=== PATIENT | male | born 1950 | race Caucasian/White ===

== ENCOUNTER 2021-02-21 16:54 | Emergency (ER) | payer OTHER ==
[~2021-02-21] VITALS: Ht 167.6 cm; Wt 68.0 kg
[2021-02-21 17:00] VITALS: BP 125/66
[2021-02-21 18:09] LABS: APPEARANCE,URINE CLEAR (CLEAR); BILIRUBIN,URINE 1+ (NEGATIVE); BLOOD, URINE 3+ (NEGATIVE); COLOR,URINE YELLOW (YELLOW); LEUKOCYTE ESTERASE ,URINE 3+ (NEGATIVE); NITRITE, URINE NEGATIVE (NEGATIVE); UGLUCOSE NEGATIVE (NEGATIVE)
[2021-02-21 18:13] LABS: RBC,URINE 50-80 /HPF (0-5); WBC,URINE 80-100 /HPF (0-5)
[2021-02-21] MEDS ORDERED: CEPH-588 PO (19:09)
[2021-02-21 19:23] VITALS: BP 139/64
== END 2021-02-21 19:23 | disposition home or self-care (01) ==
LOC: MED 16:54
DX: N30.91 Cystitis, unspecified with hematuria (principal); N40.0 Benign prostatic hyperplasia without lower urinary tract symptoms
CPT/HCPCS: 81001; 87086; 87186; 99284

== ENCOUNTER 2022-11-21 16:20 | Emergency (ER) | payer OTHER ==
[~2022-11-21] VITALS: Ht 167.6 cm; Wt 58.1 kg
[~2022-11-21 16:20] MED LIST: CEPH-588 PO
--- NOTE | 2022-11-21 16:30 | NUR ---
72/M WALKED IN C/O PELVIC PAIN, LOW BACK PAIN AND DYSURIA X 1 MONTH. DENIES HEMATURIA. AAO4, AFEBRILE, NO ACUTE DISTRESS NOTED. NKA PMH: HDL, BPH
[2022-11-21 16:46] VITALS: BP 141/66
--- NOTE | 2022-11-21 16:51 | NUR ---
PT AMBULATED TO ER BED 9
[2022-11-21 18:00] LABS: APPEARANCE,URINE SLIGHTLY CLOUDY (CLEAR); COLOR,URINE YELLOW (YELLOW)
[2022-11-21 18:01] LABS: UGLUCOSE NEGATIVE (NEGATIVE)
[2022-11-21 18:02] LABS: BILIRUBIN,URINE NEGATIVE (NEGATIVE); BLOOD, URINE TRACE (NEGATIVE)
[2022-11-21 18:03] LABS: LEUKOCYTE ESTERASE ,URINE SMALL (NEGATIVE); NITRITE, URINE NEGATIVE (NEGATIVE)
[2022-11-21] MEDS ORDERED: KETOROLAC 60 MG/2 ML VIAL IM ONE (18:25)
[2022-11-21 18:43] LABS: RBC,URINE 0-5 /HPF (0-5); WBC,URINE 60-80 /HPF (0-5)
[2022-11-21 18:44] LABS: TRICHOMONAS,URINE None Seen /HPF (None Seen); YEAST,URINE None Seen /HPF (None Seen)
[2022-11-21] MEDS ORDERED: CIPR500T4 PO ×2 (19:03→19:54)
[2022-11-21] MEDS ORDERED: IBUP-2213 PO ×2 (19:03→19:54)
--- NOTE | 2022-11-21 19:16 | NUR ---
Patient discharged with v/s stable. Written and verbal after care instructions ABOUT PYELONEPHRITIS AND ABD PAIN given and explained. Patient alert, oriented and verbalized understanding of instructions. Ambulatory with steady gait. All questions addressed prior to discharge. ID band removed. Patient advised to follow up with PMD. Rx of MOTRIN, CIPRO given. Patient educated on indication of medication including possible reaction and side effects. Opportunity to ask questions provided and answered.
== END 2022-11-21 19:15 | disposition home or self-care (01) ==
LOC: MED 16:20
DX: N12 Tubulo-interstitial nephritis, not specified as acute or chronic (principal); M54.50 Low back pain, unspecified; Z79.899 Other long term (current) drug therapy; Z90.49 Acquired absence of other specified parts of digestive tract
CPT/HCPCS: 81001; 96372; 99283; J1885

== ENCOUNTER 2022-12-03 11:08 | Emergency (ER) | payer OTHER ==
[~2022-12-03] VITALS: Ht 167.6 cm; Wt 62.1 kg
[~2022-12-03 11:08] MED LIST changes: +CIPR500T4 PO; +IBUP-2213 PO
[2022-12-03 11:28] VITALS: BP 119/72
--- NOTE | 2022-12-03 11:35 | NUR ---
PT TO LOBBY ACCOMPANIED BY CAREGIVER
--- NOTE | 2022-12-03 11:36 | NUR ---
URINE CUP PROVIDED FOR CLEAN CATCH SPECIMEN
--- NOTE | 2022-12-03 12:54 | NUR ---
PT AMBULATED TO ER BED 3
[2022-12-03] MEDS ORDERED: MORPHINE SULFATE 4 MG/ML SYR IVP ONE (13:05)
[2022-12-03] MEDS ORDERED: NACL 0.9% 500 ML IV ONE (13:05)
[2022-12-03] MEDS ORDERED: ONDANSETRON 4 MG/2 ML VIAL IVP ONE (13:05)
[2022-12-03 14:07] VITALS: BP 122/74
[2022-12-03 14:16] LABS: BASOPHILS % (AUTO) 0.2 % (0.0-2.0); EOSINOPHILS # (AUTO) 0.1 K/uL (0-0.4); EOSINOPHILS % (AUTO) 1.2 % (0.0-4.0); HEMATOCRIT 42.6 % (36-52); HEMOGLOBIN 14.5 g/dL (12.0-18.0); LYMPHOCYTES # (AUTO) 1.2 K/uL (2.0-11.5); LYMPHOCYTES % (AUTO) 14.6 % (20.5-51.1); MEAN CORPUSCULAR HEMOGLOBIN 31 pg (27-31); MEAN CORPUSCULAR HGB CONC 34 g/dL (33-37); MEAN CORPUSCULAR VOLUME 92.4 fL (80-94); MONOCYTES # (AUTO) 0.8 K/uL (0.8-1.0); MONOCYTES % (AUTO) 9.7 % (1.7-9.3); NEUTROPHILS # (AUTO) 6.1 K/uL (1.8-7.7); NEUTROPHILS % (AUTO) 74.3 % (42.2-75.2); PLATELET COUNT (AUTO) 362 K/uL (140-450); RED BLOOD CELL COUNT(AUTO) 4.62 MIL/uL (4.20-6.10); RED CELL DISTRIBUTION WIDTH 12.5 % (11.6-13.7); WHITE BLOOD COUNT (AUTO) 8.3 K/uL (4.8-10.8)
--- NOTE | 2022-12-03 14:16 | NUR ---
sleeping, easily arousable, pain relieved with iv meds. voids per urinal. wears diaper due to dribbling
[2022-12-03 14:23] LABS: ALBUMIN 3.9 g/dL (3.4-5.0); ANION GAP 13.8 (8-16); ASPARTATE AMINOTRANSFERASE 30 U/L (15-37); CHLORIDE 102 mmol/L (98-107); CREATININE 1.2 mg/dL (0.6-1.3); GLUCOSE 94 mg/dL (74-106); POTASSIUM 3.8 mmol/L (3.5-5.1); SODIUM SERUM 138 mmol/L (136-145); TOTAL BILIRUBIN 0.6 mg/dL (0.0-1.0); UREA NITROGEN, BLOOD 13 mg/dL (7-18)
[2022-12-03 14:37] LABS: APPEARANCE,URINE CLEAR (CLEAR); BILIRUBIN,URINE NEGATIVE (NEGATIVE); BLOOD, URINE NEGATIVE (NEGATIVE); COLOR,URINE YELLOW (YELLOW); LEUKOCYTE ESTERASE ,URINE NEGATIVE (NEGATIVE); NITRITE, URINE POSITIVE (NEGATIVE); UGLUCOSE NEGATIVE (NEGATIVE)
[2022-12-03 15:11] LABS: RBC,URINE 0-5 /HPF (0-5); WBC,URINE 0-5 /HPF (0-5)
[2022-12-03] MEDS ORDERED: PYR100 PO (16:29)
[2022-12-03] MEDS ORDERED: ACET-3114 PO (16:29)
--- NOTE | 2022-12-03 16:34 | NUR ---
no further pain, voiding per urinal. waiting for uber ride arranged by friends
== END 2022-12-03 16:30 | disposition home or self-care (01) ==
LOC: MED 11:08
DX: R10.32 Left lower quadrant pain (principal); R30.0 Dysuria; R35.0 Frequency of micturition; N40.0 Benign prostatic hyperplasia without lower urinary tract symptoms; N13.4 Hydroureter; N31.9 Neuromuscular dysfunction of bladder, unspecified; Z79.2 Long term (current) use of antibiotics; Z79.1 Long term (current) use of non-steroidal anti-inflammatories (NSAID)
CPT/HCPCS: 36415; 74176; 80053; 81001; 81003; 85025; 87086; 96361; 96374; 96375; 99285; J2270; J2405; J7030

== ENCOUNTER 2022-12-28 18:03 | Inpatient (IN) | payer OTHER ==
[~2022-12-28] VITALS: Ht 165.1 cm; Wt 57.6 kg
[~2022-12-28 18:03] MED LIST changes: +ACET-3114 PO; +PYR100 PO
[2022-12-28 18:12] VITALS: BP 141/83
[2022-12-28] MEDS ORDERED: ONDANSETRON 4 MG/2 ML VIAL IVP ONE (18:50)
[2022-12-28] MEDS ORDERED: MORPHINE SULFATE 4 MG/ML SYR IVP ONE (18:50)
[2022-12-28 19:44] LABS: BASOPHILS % (AUTO) 0.2 % (0.0-2.0); EOSINOPHILS # (AUTO) 0.1 K/uL (0-0.4); EOSINOPHILS % (AUTO) 0.8 % (0.0-4.0); HEMATOCRIT 41.6 % (36-52); LYMPHOCYTES # (AUTO) 0.8 K/uL (2.0-11.5); LYMPHOCYTES % (AUTO) 10.3 % (20.5-51.1); MEAN CORPUSCULAR HEMOGLOBIN 30 pg (27-31); MEAN CORPUSCULAR HGB CONC 34 g/dL (33-37); MEAN CORPUSCULAR VOLUME 90.5 fL (80-94); MONOCYTES # (AUTO) 0.6 K/uL (0.8-1.0); NEUTROPHILS # (AUTO) 6.5 K/uL (1.8-7.7); NEUTROPHILS % (AUTO) 80.7 % (42.2-75.2); PLATELET COUNT (AUTO) 331 K/uL (140-450); RED BLOOD CELL COUNT(AUTO) 4.59 MIL/uL (4.20-6.10); WHITE BLOOD COUNT (AUTO) 8.1 K/uL (4.8-10.8)
[2022-12-28 20:04] LABS: APPEARANCE,URINE CLEAR (CLEAR); BILIRUBIN,URINE NEGATIVE (NEGATIVE); BLOOD, URINE NEGATIVE (NEGATIVE); COLOR,URINE YELLOW (YELLOW); LEUKOCYTE ESTERASE ,URINE NEGATIVE (NEGATIVE); NITRITE, URINE NEGATIVE (NEGATIVE); UGLUCOSE NEGATIVE (NEGATIVE)
[2022-12-28 20:05] LABS: ALBUMIN 3.4 g/dL (3.4-5.0); ANION GAP 11.8 (8-16); ASPARTATE AMINOTRANSFERASE 19 U/L (15-37); CHLORIDE 105 mmol/L (98-107); CREATININE 1.1 mg/dL (0.6-1.3); GLUCOSE 96 mg/dL (74-106); LIPASE 61 U/L (73-393); POTASSIUM 3.8 mmol/L (3.5-5.1); SODIUM SERUM 138 mmol/L (136-145); TOTAL BILIRUBIN 0.7 mg/dL (0.0-1.0); UREA NITROGEN, BLOOD 12 mg/dL (7-18)
--- NOTE | 2022-12-28 20:11 | NUR ---
72 YR OLD MALE BIB SPOUSE C/O ABD PAIN [id number] RADIATES TO FLANK AREA . 1010 PAIN . PT IS A&OX4 TAGALOG SPEAKING ONLY. +NAUSEA DYURIA AND GEN WEAKNESS. ON BEDSIDE MONITOR . HOB ELEVATED. 20G L AC BED AT LOWEST LEVEL SIDE RAILS UP X2. NKDA ENLARGED PROSTATE
[2022-12-28] MEDS ORDERED: HEPARIN PER PHARMACY MC PRN ×2 (22:40→22:45)
[2022-12-28] MEDS ORDERED: hePARIN / DEXT 5% PREMIX 250 ML IV SCH ×2 (22:40→22:45)
--- NOTE | 2022-12-28 23:05 | NUR ---
PT ADMITTED TO ICU. PT AND AWARE. ON BEDSIDE ASSISTANT PROFESSOR OF ENGLISH. PT IS A&OX4 RESP EVEN AND UNLABORED.
--- NOTE | 2022-12-28 23:06 | NUR ---
COVID SWAB COLLECTED AND SENT TO LAB
--- NOTE | 2022-12-28 23:49 | NUR ---
REPORT GIVEN TO ICU
[2022-12-29] VITALS (17 sets, daily range): BP systolic 124–154; BP diastolic 60–91
--- NOTE | 2022-12-29 00:07 | NUR ---
Patient will be admitted to care of DR GALARZA. Admited to ICU. Will go to room ICU 8. Belongings list completed. Report to SOURAV MARTINEZ.
--- NOTE | 2022-12-29 00:10 | NUR ---
RECEIVED PT FROM ER. REPORT GIVEN BY LEXUS PISANO. PT ALERT AND ORIENTED. ABLE TO FOLLOW SIMPLE COMMANDS AND ABLE TO PROVIDE INFORMATION REGARDING HIS HEALTH CONDITION AND HISTORY. ON ROOM AIR WITH SATURATION OF 96%. LUNG SOUNDS CLEAR TO AUSCULTATION AT ALL LOBES. NO SOB. EYES REACTIVE TO LIGHT AND ACCOMMODATION. NORMAL SINUS RHYTHM ON THE MONITOR. SKIN INTACT. CONTINENT WITH CLEAR YELLOW URINE COLOR. GENERALIZED WEAKNESS ON UPPER AND LOWER EXTREMITIES BILATERALLY. REPOSITION AND PLACED COMFORTABLY IN BED WITH HEAD OF BED ELEVATED AT 30 DEGREE. BED LOCK AND PLACED AT LOWEST POSITION. CALL LIGHT AND BELONGINGS WITHIN REACH. MAKE ALL NEEDS KNOWN. NO S/S OF DISTRESS. NO S/S OF PAIN. IS AT BEDSIDE DURING TRANSFER TO ICU. WILL CONTINUE TO MONITOR FOR CHANGE OF CONDITION
--- NOTE | 2022-12-29 00:17 | NUR ---
The patient's care was reviewed and supervised by Sharmila Dillard RN.
[2022-12-29] MEDS: hePARIN / DEXT 5% PREMIX 250 ML IV SCH ×3 (01:04→23:19)
--- NOTE | 2022-12-29 07:26 | NUR ---
REPORT GIVEN TO RAFFY LOZADA RN FOR CONTINUITY OF CARE.
[2022-12-29 08:03] LABS: ANION GAP 12.5 (8-16); CARBON DIOXIDE 26.2 mmol/L (21-32); CHLORIDE 104 mmol/L (98-107); CREATININE 0.9 mg/dL (0.6-1.3); GLUCOSE 88 mg/dL (74-106); POTASSIUM 3.7 mmol/L (3.5-5.1); SODIUM SERUM 139 mmol/L (136-145); UREA NITROGEN, BLOOD 13 mg/dL (7-18)
[2022-12-29 08:15] LABS: BASOPHILS % (AUTO) 0.1 % (0.0-2.0); EOSINOPHILS # (AUTO) 0.1 K/uL (0-0.4); EOSINOPHILS % (AUTO) 1.3 % (0.0-4.0); HEMATOCRIT 38.7 % (36-52); HEMOGLOBIN 13.2 g/dL (12.0-18.0); LYMPHOCYTES # (AUTO) 0.8 K/uL (2.0-11.5); LYMPHOCYTES % (AUTO) 11.3 % (20.5-51.1); MEAN CORPUSCULAR HEMOGLOBIN 31 pg (27-31); MEAN CORPUSCULAR HGB CONC 34 g/dL (33-37); MEAN CORPUSCULAR VOLUME 89.9 fL (80-94); MONOCYTES # (AUTO) 0.5 K/uL (0.8-1.0); MONOCYTES % (AUTO) 7.4 % (1.7-9.3); NEUTROPHILS # (AUTO) 5.9 K/uL (1.8-7.7); NEUTROPHILS % (AUTO) 79.9 % (42.2-75.2); PLATELET COUNT (AUTO) 325 K/uL (140-450); WHITE BLOOD COUNT (AUTO) 7.4 K/uL (4.8-10.8)
[2022-12-29 08:38] LABS: PROTHROMBIN TIME 12.1 secs (10.8-13.4)
--- NOTE | 2022-12-29 08:50 | NUR ---
PTT RESULT @98.2. PER HEPARIN PROTOCOL, HOLD FOR ONE HOUR AND TITRATE DOWN 3 UNITS/KG/HR. WILL RESUME HEPARIN DRIP AT 0950 @15UNITS/KG/HR. PT VSS. NAD NOTED. WILL CONT TO MONITOR.
--- NOTE | 2022-12-29 09:13 | NUR ---
PATIENT HAS BEEN SCREENED AND CATEGORIZED MODERATE NUTRITION RISK. PATIENT WILL BE SEEN WITHIN 3-5 DAYS OF ADMISSION. REVIEWED BY MELISSA RAHMAN RD
[2022-12-29] MEDS ORDERED: HYDROmorphone 2 MG TAB PO PRN (10:45)
[2022-12-29] MEDS: MORPHINE SULFATE 2 MG/ML SYR IVP PRN (11:25)
[2022-12-29] MEDS ORDERED: MAG SULF 2000 MG/WATER PREMIX 50 ML IV PRN (12:10)
[2022-12-29] MEDS ORDERED: ONDANSETRON 4 MG/2 ML VIAL IVP PRN (12:10)
[2022-12-29] MEDS ORDERED: POTASSIUM CHLORIDE 10 MEQ TABER PO PRN (12:10)
[2022-12-29] MEDS ORDERED: ACETAMINOPHEN 325 MG TAB PO PRN (12:10)
--- NOTE | 2022-12-29 12:22 | NUR ---
DC PLANNING ASSESSMENT COMPLETE PLEASE REFER TO ASSESSMENT FOR ADDITIONAL DETAILS PT REPORTS BEING TOLD ABOUT POSSIBLE CANCER DX AND REPORTS BEING WORRIED. PT STRUGGLED TO IDENTIFY DC PLAN, HOWEVER CURRENT DC PLAN TENTATIVE ON PHYSICIAN RECOMMENDATIONS. Addendum: 12/29/22 at 1223 by John Moreau SS Amended: Links added.
[2022-12-29] MEDS: NACL 0.9% 1,000 ML IV SCH (12:32)
[2022-12-29 13:00] LABS: PROTHROMBIN TIME 11.8 secs (10.8-13.4)
[2022-12-29 13:09] LABS: AMYLASE 53 U/L (25-115); CHOL/HDL RATIO 3.7 (1-4.5); FREE T4 (FREE THYROXINE) 1.27 ng/dL (0.76-1.46); HDL CHOLESTEROL 41 mg/dL (40-60); LDL (CALC) 92 mg/dL (60-100); LIPASE 50 U/L (73-393); TRIGLYCERIDES 96 mg/dL (30-150)
--- NOTE | 2022-12-29 14:39 | NUR ---
DC PLANNING A 72 Y.O. [place] PATIENT PRESENTED TO ED FOR EVALUATION OF 1 MONTH HX OF INTERMITTENT,SQUEEZING/CRAMPING ABDOMINAL PAIN ASSOCIATED WITH EPIGASTRIC/ABDOMINAL PAIN,DECREASED APPETITE,DYSURIA AND GENERALIZED WEAKNESS.PATIENT ALSO COMPLAINING OF DIFFICULTY WALKING SECONDARY TO ABDOMINAL PAIN AND DECREASED URINARY OUTPUT. HX OF BPI,COPD,ALERT AND ORIENTED.ON ROOM AIR.ON HEPARIN DRIP.CM TO FOLLOW. Addendum: 12/29/22 at 1523 by MIRNA MCCOY CM DC PLANNING-LATE ENTRY ABDOMEN PELVIS CT CONCERNING FOR CAREN METASTATIC DISEASE VS HYPOPROLIFERATIVE DISEASE, MILD ASCITES CONCERNING FOR MALIGNANT ASCITES.PATIENT HAS NO PCP.DC PLAN - BACK HOME WITH POSSIBLY WITH HOME HEALTH FOR PT.CM TO FOLLOW. Addendum: 12/30/22 at 1240 by MIRNA MCCOY CM DC PLANNING TRANSFERRED TO TELEMETRY UNIT 12/29/22.HEPARIN DRIP DISCONTINUED AND WAS STARTED ON ELIQUIS. HEMATOLOGY-ONCOLOGY ON BOARD FOR POSSIBLE STAGE 1V COLON CA.GI CONSULT REQUESTED FOR POSSIBLE COLONOSCOPY.NO ADDITIONAL CARDIAC WORKUP PER CARDIO.DC PLAN -TO [facility] FOR SNF PLACEMENT WHEN STABLE FOR DISCHARGE. AGREED WITH DC PLAN.CM TO FOLLOW. Addendum: 12/31/22 at 1638 by OMEGA MORFIN CM RECEIVED ORDER FOR PATIENT TO GO TO SNF FOR PT. FAXED ALL PAPERWORK TO [facility]. SPOKE WITH LUCY PATIENT WAS ACCEPTED AND WILL BE GOING TO ROOM 33A UNDER DR WANG. TRANSPORTATION ARRANGED WITH THE HOUSE SUP WITH A UBER TO TRANSPORT PATIENT TO [facility] WITH IN THE HOUR. NURSE IRKKI AND AWARE OF THE ABOVE INFORMATION.
--- NOTE | 2022-12-29 15:20 | NUR ---
CARE ENDORSED TO CLAUDIA MARTINEZ FOR TELEMETRY UNIT ROOM 105B. VSS. NAD NOTED. HEPARIN DRIP RUNNING AT 800UNITS/HR. NO SIGNS OF BLEEDING. AAOX4. PT CONTINENT, USES URINAL. NO COMPLAINTS OF PAIN AT THIS TIME. ALL QUESTIONS ANSWERED. AT BEDSIDE. END OF CARE.
--- NOTE | 2022-12-29 15:20 | NUR ---
RECEIVED FROM ICU VIA WHEELCHAIR. ACCOMPANIED BY PT -. A & O X4. NO SOB, NOTED. NO C/O PAIN. IN STABLE CONDITION. SKIN WARM, DRY, AND INTACT. KEEP COMFORTABLE ON BED. FALL PRECAUTION APPLIED. CALL LIGHT WITHIN REACH.
[2022-12-29 16:01] LABS: THYROID STIMULATING HORMONE 2.13 uIU/mL (0.34-3.74)
[2022-12-29] MEDS: HYDROcodone/APAP 7.5/325 MG 1 TAB PO PRN (17:21)
--- NOTE | 2022-12-29 18:26 | NUR ---
COLLECTED URINE SPECIMEN AND SEND TO LAB FOR URINE CULTURE.
--- NOTE | 2022-12-29 19:10 | NUR ---
REPORT GIVEN TO GURMEET BARRIENTOS. IN STABLE CONDITION.
--- NOTE | 2022-12-29 19:15 | NUR ---
RECEIVED PT IN BED ASLEEP EASILY AROUSABLE BY VERBAL STIMULI. DENIES PAIN AT THIS TIME. NO ACUTE RESPIRATORY DISTRESS NOTED. SKIN WARM AND DRY TO TOUCH. HEPARIN DRIP INFUSING WELL ORDERED. SAFETY PRECAUTIONS IN PLACE, CALL LIGHT IN REACH.
[2022-12-29 19:20] LABS: BARBITURATE, URINE NEGATIVE ng/ml (NEG <=200); BENZODIAZEPINE, URINE NEGATIVE ng/mL (NEG <=200); CANNABINOID, URINE NEGATIVE ng/mL (NEG <=50); COCAINE, URINE NEGATIVE ng/mL (NEG <=300); OPIATE, URINE POSITIVE ng/mL (NEG <=2000); PHENCYCLIDINE SCREEN,URINE NEGATIVE ng/mL (NEG <=25)
[2022-12-29] MEDS: DOCUSATE SODIUM 100 MG GELCAP PO SCH (20:06)
--- NOTE | 2022-12-29 23:04 | NUR ---
PTT-58.8 PER LAB, NO CHANGE IN HEPARIN DRIP PER PROTOCOL.
--- NOTE | 2022-12-30 | NUR ---
VITAL SIGNS TAKEN AND DOCUMENTED, WITHIN NORMAL LIMITS. DENIES PAIN. CALL LIGHT REMAINS WITHIN REACH.
[2022-12-30 00:06] VITALS: BP 148/69
--- NOTE | 2022-12-30 02:18 | NUR ---
ROUNDING DONE. PATIENT IS ASLEEP. BREATHING EVEN AND UNLABORED. CALL LIGHT WITHIN REACH.
[2022-12-30] MEDS: MORPHINE SULFATE 2 MG/ML SYR IVP PRN (02:47)
[2022-12-30] MEDS: hePARIN / DEXT 5% PREMIX 250 ML IV SCH (02:51)
[2022-12-30 04:00] VITALS: BP 137/57
[2022-12-30] MEDS: HYDROcodone/APAP 7.5/325 MG 1 TAB PO PRN (06:11)
--- NOTE | 2022-12-30 06:34 | NUR ---
PT IS ASLEEP. ALL NEEDS ATTENDED TO. NO S/SX OF PAIN NOR DISCOMFORT. SAFETY PRECAUTIONS IN PLACE, CALL LIGHT REMAINS WITHIN REACH.
[2022-12-30 07:05] LABS: MAGNESIUM 1.9 mg/dL (1.8-2.4); PHOSPHORUS 2.9 mg/dL (2.5-4.9)
[2022-12-30 07:08] LABS: BASOPHILS % (AUTO) 0.2 % (0.0-2.0); EOSINOPHILS # (AUTO) 0.1 K/uL (0-0.4); EOSINOPHILS % (AUTO) 1.7 % (0.0-4.0); HEMATOCRIT 37.7 % (36-52); LYMPHOCYTES # (AUTO) 0.9 K/uL (2.0-11.5); LYMPHOCYTES % (AUTO) 13.6 % (20.5-51.1); MEAN CORPUSCULAR HEMOGLOBIN 31 pg (27-31); MEAN CORPUSCULAR HGB CONC 34 g/dL (33-37); MEAN CORPUSCULAR VOLUME 89.7 fL (80-94); MONOCYTES # (AUTO) 0.7 K/uL (0.8-1.0); MONOCYTES % (AUTO) 10.4 % (1.7-9.3); NEUTROPHILS # (AUTO) 4.9 K/uL (1.8-7.7); NEUTROPHILS % (AUTO) 74.1 % (42.2-75.2); PLATELET COUNT (AUTO) 325 K/uL (140-450); RED BLOOD CELL COUNT(AUTO) 4.21 MIL/uL (4.20-6.10); RED CELL DISTRIBUTION WIDTH 12.9 % (11.6-13.7); WHITE BLOOD COUNT (AUTO) 6.6 K/uL (4.8-10.8)
--- NOTE | 2022-12-30 07:10 | NUR ---
RECEIVED PATIENT FROM PM SHIFT NURSE FOR CONTINUATION OF CARE. ED SEEN ASLEEP. NORAML RISE AND FALL OF CHEST
[2022-12-30 07:13] LABS: ANION GAP 12.7 (8-16); CARBON DIOXIDE 26.1 mmol/L (21-32); CHLORIDE 104 mmol/L (98-107); GLUCOSE 85 mg/dL (74-106); POTASSIUM 3.8 mmol/L (3.5-5.1); SODIUM SERUM 139 mmol/L (136-145); UREA NITROGEN, BLOOD 11 mg/dL (7-18)
--- NOTE | 2022-12-30 07:40 | NUR ---
PATIENT SEEN BY MD WITH RN. PATIENT STATES HE WANTS TO HAVE MORE TESTS DONE TO PINPOINT THE SPECIFIC MEDICAL PROBLEM IN ORDER FOR PROPER TREATMENT AND HEALING. PATIENT DENIES COMFORT CARE IN FACILITY DUE TO HIM AND HIS BEING OF OLD AGE WITH NO AVAILABLE ASSISTANCE. PATIENT ALSO REFUSES TO GO TO A CARE FACILITY. PATIENT WANTS TO BE TREATED IN THE HOSPITAL.
[2022-12-30] MEDS ORDERED: MORPHINE SULFATE 2 MG/ML SYR IVP PRN (07:45)
--- NOTE | 2022-12-30 07:54 | NUR ---
NEW ORDERS GIVEN BY MD. PATIENT CARE AND MONITORING CONTINUED.
--- NOTE | 2022-12-30 07:55 | NUR ---
PATIENT COMPLAINS OF PAIN. SCORE 9/10. PAIN MEDS GIVEN. REASSESSMENT IN 0855
[2022-12-30 08:00] VITALS: BP 147/61
--- NOTE | 2022-12-30 08:00 | NUR ---
PATIENT DECIDES NOT TO TAKE MORPHINE AND WANTS SOMETHING ORAL. MD NOTIFIED. MD GAVE ORDERS FOR DILAUDED PO FOR SEVERE PAIN.
[2022-12-30] MEDS: PANTOPRAZOLE 40 MG INJ VIAL IVP SCH (09:07)
[2022-12-30] MEDS: NACL 0.9% 1,000 ML IV SCH (09:07)
[2022-12-30] MEDS: DOCUSATE SODIUM 100 MG GELCAP PO SCH ×2 (09:07→20:10)
[2022-12-30 12:00] VITALS: BP 110/44
[2022-12-30] MEDS ORDERED: MORPHINE SULFATE 4 MG/ML SYR IVP PRN (12:40)
[2022-12-30 16:00] VITALS: BP 142/76
--- NOTE | 2022-12-30 17:48 | NUR ---
P.T. NOTES P.T. EVAL COMPLETED; REFER TO EVAL FOR DETAILS.
--- NOTE | 2022-12-30 18:00 | NUR ---
PATIENT SCEDULED FOR COLONOSCOPY TOMORROW. GIVEN CLEAR LIQUID DIET FOR DINNER.
[2022-12-30] MEDS ORDERED: SENNA 8.6 MG TAB PO SCH (18:01)
--- NOTE | 2022-12-30 19:15 | NUR ---
ENDORSED TO PM NURSE FOR CONTIUATION OF CARE. PATIENT SEEN NORMAL VITALS.
--- NOTE | 2022-12-30 19:20 | NUR ---
RECEIVED PT IN BED AWAKE, ALERT AND ORIENTED X 4. DENIES PAIN AT THIS TIME. NO ACUTE RESPIRATORY DISTRESS NOTED. SKIN WARM AND DRY TO TOUCH. IVF INFUSING WELL ORDERED. SAFETY PRECAUTIONS IN PLACE, CALL LIGHT IN REACH ENCOURAGED TO CALL IF ASSISTANCE IS NEEDED, PT VERBALLY ACKNOWLEDGED.
[2022-12-30 20:00] VITALS: BP 140/62
[2022-12-30] MEDS: LACTULOSE 20 GM/30 ML UDC PO SCH (20:08)
[2022-12-30] MEDS: POLYETHYLENE GLYCOL 17 GM/PKT PO SCH (20:10)
[2022-12-30] MEDS: APIXABAN 2.5 MG TAB PO SCH (20:11)
[2022-12-31] VITALS: BP 142/68
--- NOTE | 2022-12-31 00:53 | NUR ---
ASSISTED PT TO THE BATHROOM AND BACK IN BED. PATIENT HAD A LARGE WATERY WITH FORMED STOOL. UPON CLEANING BY PT, NOTED SOME BLOOD STAIN ON THE TISSUE, PER PT HE HAS HEMORRHOIDS. MADE COMFORTABLE IN BED, PLACE CALL LIGHT WITHIN REACH, INSTRUCTED TO CALL IF ASSISTANCE IS NEEDED, PT VERBALLY ACKNOWLEDGED.
--- NOTE | 2022-12-31 03:00 | NUR ---
ROUNDING DONE. PATIENT IS ASLEEP. NO DISTRESS NOTED.
[2022-12-31] MEDS: NACL 0.9% 1,000 ML IV SCH (03:38)
[2022-12-31 04:00] VITALS: BP 140/68
--- NOTE | 2022-12-31 05:03 | NUR ---
CALL PLACED TO DR. SANTAMARIA TO INFORM MD THAT PT HAD ONLY 1 BM AND NOT CLEAR, HAD A LOT OF FORMED STOOLS, PER MD JUST KEEP GIVING ALL LAXATIVES.
[2022-12-31] MEDS: SUPREP BOWEL PREP KIT 354 ML SOLN.RECON PO SCH ×2 (05:37→09:00)
--- NOTE | 2022-12-31 06:12 | NUR ---
PATIENT HAD A LARGE WATERY BROWN WITH SOME SOLID STOOL. SUPREP GIVEN ORDERED. AM CARE DONE BY PT.
[2022-12-31 06:48] LABS: ANION GAP 9.6 (8-16); CHLORIDE 104 mmol/L (98-107); CREATININE 0.9 mg/dL (0.6-1.3); GLUCOSE 97 mg/dL (74-106); POTASSIUM 3.6 mmol/L (3.5-5.1); SODIUM SERUM 138 mmol/L (136-145); UREA NITROGEN, BLOOD 9 mg/dL (7-18)
[2022-12-31 06:55] LABS: MAGNESIUM 1.7 mg/dL (1.8-2.4); PHOSPHORUS 2.7 mg/dL (2.5-4.9)
[2022-12-31 06:58] LABS: BASOPHILS % (AUTO) 0.1 % (0.0-2.0); EOSINOPHILS # (AUTO) 0.1 K/uL (0-0.4); HEMATOCRIT 35.3 % (36-52); HEMOGLOBIN 12.1 g/dL (12.0-18.0); LYMPHOCYTES # (AUTO) 0.8 K/uL (2.0-11.5); LYMPHOCYTES % (AUTO) 11.6 % (20.5-51.1); MEAN CORPUSCULAR HEMOGLOBIN 31 pg (27-31); MEAN CORPUSCULAR HGB CONC 34 g/dL (33-37); MEAN CORPUSCULAR VOLUME 89.7 fL (80-94); MONOCYTES # (AUTO) 0.8 K/uL (0.8-1.0); MONOCYTES % (AUTO) 11.2 % (1.7-9.3); NEUTROPHILS # (AUTO) 5.3 K/uL (1.8-7.7); NEUTROPHILS % (AUTO) 75.1 % (42.2-75.2); PLATELET COUNT (AUTO) 288 K/uL (140-450); RED BLOOD CELL COUNT(AUTO) 3.94 MIL/uL (4.20-6.10); RED CELL DISTRIBUTION WIDTH 12.7 % (11.6-13.7); WHITE BLOOD COUNT (AUTO) 7.1 K/uL (4.8-10.8)
[2022-12-31 08:00] VITALS: BP 154/67
--- NOTE | 2022-12-31 08:00 | NUR ---
received patient resting in bed, not in any form of distress, patient on bowel prep for colonoscopy, clear watery stools noted, Dr. Machado came to see patient. will continue to monitor.
[2022-12-31] MEDS: PANTOPRAZOLE 40 MG INJ VIAL IVP SCH (08:36)
[2022-12-31] MEDS: LACTULOSE 20 GM/30 ML UDC PO SCH ×2 (08:36→13:00)
[2022-12-31] MEDS: POLYETHYLENE GLYCOL 17 GM/PKT PO SCH ×2 (08:37→13:00)
[2022-12-31] MEDS: SENNA 8.6 MG TAB PO SCH ×2 (08:37→13:00)
[2022-12-31] MEDS: DOCUSATE SODIUM 100 MG GELCAP PO SCH (08:37)
[2022-12-31] MEDS: APIXABAN 2.5 MG TAB PO SCH (09:00)
[2022-12-31 12:00] VITALS: BP 107/68
[2022-12-31] MEDS ORDERED: fentaNYL citrate 0.05 MG/ML VIAL ONE (14:07)
[2022-12-31] MEDS ORDERED: MIDAZOLAM 2 MG/2 ML VIAL ONE (14:07)
--- NOTE | 2022-12-31 14:30 | NUR ---
patient to OR for colonoscopy. transported by OR team. stable at this time
--- NOTE | 2022-12-31 14:38 | NUR ---
12/31/22 RD INITIAL ASSESSMENT COMPLETED PLEASE REFER TO NUTRITION ASSESSMENT UNDER CARE ACTIVITY FOR ESTIMATED NUTRITIONAL NEEDS. 1. MONITOR NPO STATUS 2. RECOMMEND CARDIAC DIET WHEN/IF MEDICALLY APPROPRIATE 3. RD TO FOLLOW-UP 7 DAYS, LOW RISK REVIEWED BY MELISSA RAHMAN RD
--- NOTE | 2022-12-31 15:10 | NUR ---
patient back from colonoscopy. asleep, vital signs WNL, not in any distress, stable at this time.
[2022-12-31] MEDS ORDERED: MIDAZOLAM 2 MG/2 ML VIAL IVP ONE (15:35)
[2022-12-31] MEDS ORDERED: fentaNYL citrate 0.05 MG/ML VIAL IVP ONE (15:35)
[2022-12-31 16:00] VITALS: BP 107/68
[2022-12-31 16:53] VITALS: BP 107/68
--- NOTE | 2022-12-31 18:00 | NUR ---
patient discharged to [facility] via UBER accompanied by . report given to Madelyn MARTINEZ at [facility]. patient stable upon discharge
== END 2022-12-31 18:11 | DRG 374 ==
LOC: MED 18:03 → MMU 22:45 → MIC 23:47 → MTU 12-29 15:20
PROC: 0DJD8ZZ Inspection of Lower Intestinal Tract, Via Natural or Artificial Opening Endoscopic (ICD-10-PCS; principal; 2022-12-31 14:00)
DX: C18.9 Malignant neoplasm of colon, unspecified (principal); I82.220 Acute embolism and thrombosis of inferior vena cava; C78.6 Secondary malignant neoplasm of retroperitoneum and peritoneum; R18.0 Malignant ascites; K56.600 Partial intestinal obstruction, unspecified as to cause; N31.9 Neuromuscular dysfunction of bladder, unspecified; F17.200 Nicotine dependence, unspecified, uncomplicated; Z20.822 Contact with and (suspected) exposure to COVID-19; R59.1 Generalized enlarged lymph nodes; N40.0 Benign prostatic hyperplasia without lower urinary tract symptoms; E78.00 Pure hypercholesterolemia, unspecified; J44.9 Chronic obstructive pulmonary disease, unspecified; E83.42 Hypomagnesemia; E78.5 Hyperlipidemia, unspecified; Z79.1 Long term (current) use of non-steroidal anti-inflammatories (NSAID); Z79.899 Other long term (current) drug therapy
CPT/HCPCS: 36415; 76705; 80048; 80053; 80305; 81003; 82140; 82150; 82378; 83036; 83605; 83690; 83735; 83880; 84100; 84439; 84443; 84484; 85025; 85610; 85730; 87040; 87081; 87086; 93005; 96374; 96375; 97112; 97116; 97530; 99285; C9113; J1644; J2250; J2270; J2405; J3010; J3475; J7030; Q0092; Q9967

== ENCOUNTER 2023-01-04 22:50 | Inpatient (IN) | payer OTHER ==
[~2023-01-04] VITALS: Ht 167.6 cm; Wt 49.4 kg
[~2023-01-04 22:50] MED LIST changes: -CEPH-588 PO; -CIPR500T4 PO; -IBUP-2213 PO; -PYR100 PO
--- NOTE | 2023-01-04 22:53 | NUR ---
ALEENA CARRANZAS TO BED #4
--- NOTE | 2023-01-04 22:55 | NUR ---
Patient resting in bed, A/Ox4, chest rise and fall symmetrical, no s/s of distress, patinet on monitor.
[2023-01-04 22:56] VITALS: BP 137/69
--- NOTE | 2023-01-04 23:10 | NUR ---
Patient resting in bed, A/Ox4, chest rise and fall symmetrical, no s/s of distress, patinet on monitor.
[2023-01-04] MEDS ORDERED: APIX5TAB PO (23:41)
[2023-01-04] MEDS ORDERED: TUBE5SOL28 INJ (23:41)
[2023-01-04] MEDS ORDERED: DOCU-299 PO (23:41)
[2023-01-04] MEDS ORDERED: BISA-218 RC (23:41)
[2023-01-04] MEDS ORDERED: ACET-2619 PO (23:41)
[2023-01-04] MEDS ORDERED: FLEPED RC (23:41)
--- NOTE | 2023-01-04 23:56 | NUR ---
ER physician assessing patient.
--- NOTE | 2023-01-05 | NUR ---
Patient resting in bed, A/Ox4, chest rise and fall symmetrical, no s/s of distress, patinet on monitor.
[2023-01-05 01:33] LABS: ALBUMIN 3.1 g/dL (3.4-5.0); ASPARTATE AMINOTRANSFERASE 26 U/L (15-37); CARBON DIOXIDE 27.1 mmol/L (21-32); CHLORIDE 103 mmol/L (98-107); GLUCOSE 105 mg/dL (74-106); POTASSIUM 3.1 mmol/L (3.5-5.1); SODIUM SERUM 139 mmol/L (136-145); TOTAL BILIRUBIN 0.6 mg/dL (0.0-1.0); UREA NITROGEN, BLOOD 14 mg/dL (7-18)
--- NOTE | 2023-01-05 02:00 | NUR ---
Patient resting in bed, A/Ox4, chest rise and fall symmetrical, no s/s of distress, patinet on monitor. Addendum: 01/05/23 at 0518 by [email or web address] Patient resting in bed, A/Ox4, chest rise and fall symmetrical, no c/o pain or s/s of distress, patinet on monitor.
[2023-01-05 02:53] LABS: BASOPHILS # (AUTO) 0.1 K/uL (0.00-0.22); BASOPHILS % (AUTO) 0.6 % (0.0-2.0); EOSINOPHILS # (AUTO) 0.2 K/uL (0-0.4); EOSINOPHILS % (AUTO) 1.9 % (0.0-4.0); HEMATOCRIT 35.7 % (36-52); HEMOGLOBIN 11.8 g/dL (12.0-18.0); LYMPHOCYTES # (AUTO) 0.9 K/uL (2.0-11.5); LYMPHOCYTES % (AUTO) 11.6 % (20.5-51.1); MEAN CORPUSCULAR HEMOGLOBIN 30 pg (27-31); MEAN CORPUSCULAR HGB CONC 33 g/dL (33-37); MONOCYTES # (AUTO) 0.9 K/uL (0.8-1.0); MONOCYTES % (AUTO) 10.8 % (1.7-9.3); NEUTROPHILS # (AUTO) 6.1 K/uL (1.8-7.7); NEUTROPHILS % (AUTO) 75.1 % (42.2-75.2); PLATELET COUNT (AUTO) 282 K/uL (140-450); RED BLOOD CELL COUNT(AUTO) 3.96 MIL/uL (4.20-6.10); RED CELL DISTRIBUTION WIDTH 13.4 % (11.6-13.7); WHITE BLOOD COUNT (AUTO) 8.1 K/uL (4.8-10.8)
--- NOTE | 2023-01-05 03:00 | NUR ---
Dr. Tim asked is he wanted a NG-tube insterted. Dr. Tim declined NG-tube insertion.
--- NOTE | 2023-01-05 04:10 | NUR ---
Patient resting in bed, A/Ox4, chest rise and fall symmetrical, no s/s of distress, patinet on monitor. Addendum: 01/05/23 at 0636 by [id number] Patient resting in bed, A/Ox4, chest rise and fall symmetrical, no c/o pain or s/s of distress, patinet on monitor.
[2023-01-05] MEDS ORDERED: NACL 0.9% 1,000 ML IV ONE (04:20)
[2023-01-05] MEDS ORDERED: PANTOPRAZOLE 40 MG INJ VIAL IVP ONE (04:20)
[2023-01-05] MEDS ORDERED: MORPHINE SULFATE 4 MG/ML SYR IVP ONE (04:20)
[2023-01-05] MEDS ORDERED: WATER STERILE 0 ML MC ONE (05:03)
[2023-01-05] MEDS ORDERED: HYDROcodone/APAP 5/325 MG 1 TAB TAB PO PRN (05:40)
[2023-01-05] MEDS ORDERED: ONDANSETRON 4 MG/2 ML VIAL IVP PRN (05:40)
[2023-01-05 06:00] LABS: BILIRUBIN,URINE NEGATIVE (NEGATIVE); BLOOD, URINE NEGATIVE (NEGATIVE); COLOR,URINE YELLOW (YELLOW); LEUKOCYTE ESTERASE ,URINE NEGATIVE (NEGATIVE); NITRITE, URINE NEGATIVE (NEGATIVE); PH,URINE 6.5 (5.0-9.0); UGLUCOSE NEGATIVE (NEGATIVE)
[2023-01-05 06:08] LABS: APPEARANCE,URINE HAZY (CLEAR)
[2023-01-05] MEDS: LACTATED RINGERS 1,000 ML IV SCH ×2 (06:30→15:40)
--- NOTE | 2023-01-05 06:35 | NUR ---
Patient resting in bed, A/Ox4, chest rise and fall symmetrical, no c/o pain or s/s of distress, patinet on monitor.
--- NOTE | 2023-01-05 07:13 | NUR ---
Change of shift report given to AM Shift Nurse Christopher MARTINEZ. AM Shift Nurse Christopher MARTINEZ verbalized understanding of report, no further questions.
--- NOTE | 2023-01-05 07:45 | NUR ---
Patient will be admitted to care of MD DIAZ. Admited to MED SURG. Will go to [id number]. Belongings list completed. Report to ZRAA RN AT BEDSIDE.
[2023-01-05] MEDS ORDERED: POTASSIUM CHLORIDE 10 MEQ TABER PO SCH (08:10)
--- NOTE | 2023-01-05 08:10 | NUR ---
RECEIEVED PT FROM ED. PATIENT AWAKE, RESPONSIVE. REPORTS OF BLOODY STOOL.
[2023-01-05] MEDS ORDERED: BOWEL EVACUANT DRINK 4,000 ML PDS PO SCH (08:50)
[2023-01-05] MEDS: PANTOPRAZOLE 40 MG INJ VIAL IVP SCH ×2 (09:39→20:51)
--- NOTE | 2023-01-05 10:41 | NUR ---
PATIENT HAS BEEN SCREENED AND CATEGORIZED HIGH NUTRITION RISK. PATIENT WILL BE SEEN WITHIN 1-2 DAYS OF ADMISSION. 01/06/23-01/07/23 REVIEWED BY MELISSA RAHMAN RD
[2023-01-05 12:00] VITALS: BP 139/63
--- NOTE | 2023-01-05 15:35 | NUR ---
DC PLANNING A 72Y.O. MALE FRENCH PATIENT ADMITTED TO TELEMETRY FROM [facility] WHO WAS RE-ADMITTED FOR COMPLAINTS OF VOMITING AND ABDOMINAL PATIENT WAS ADMITTED HERE 01/01 FOR SAME PROBLEM.WITH HX OF UNCONFIRMED COLON CANCER ,BPH,HTN,HLD,COPD PRESENTING WITH BLOODY STOOLS X 3 DAYS .PRIOR EVALUATION DURING IST ADMISSION WAS SUSPICIOUS OF CECAL MASS WITH ADVANCED LOCAL METS TO THE PERITONEUM.SCHEDULED FOR COLONOSCOPY TODAY AND BEING PREPPED WITH GOLYTELY.ON PROTONIX IVPB BID AND ZOFRAN PRN.HGB/HCT STABLE.CT PELVIS/ABDOMEN PROBABLE SBO.DC PLAN- BACK TO [facility] WHEN PATIENT CONDITION IMPROVES AND WHEN PATIENT RESPONDS TO TX.CM TO FOLLOW. Addendum: 01/07/23 at 1203 by OMEGA MORFIN RECEIVED ORDER FOR PATIENT TO GO TO SNF FOR CONTINUE OF CARE. FAXED ALL PAPERWORK TO [facility] [address] [facility] [address]. SPOKE WITH KAELYN PATIENT WILL BE GOING TO ROOM 33A UNDER DR WANG. TRANSPORTATION ARRANGED WITH [employer] WITH A 1500 BAND AND CUFF CUTTER TIME.TRANSPORT CONFIRMATION #[id number] NURSE KEITH AND AWARE OF THE ABOVE INFORMATION.
[2023-01-05 16:00] VITALS: BP 107/71
--- NOTE | 2023-01-05 19:10 | NUR ---
RECEIEVED PATIENT FROM ED. PATIENT AWAKE COHERENT ADN ARIK ESPOSITO ON Addendum: 01/05/23 at 1928 by ZARA WRAY RN TIME CHART CORRECTION [id number]
--- NOTE | 2023-01-05 19:28 | NUR ---
ENDORSED PATIENT TO PM NURSE FOR CONTINUATION OF CARE.
[2023-01-05 20:00] VITALS: BP 129/64
--- NOTE | 2023-01-05 20:51 | NUR ---
PATIENT IS AWAKE IN BED WATCHING TV ON 2L NC SATING 99%. NO S/S OF RESPIRATORY DISTRESS. BREATHING REGULAR NON LABORED. ALL SAFETY PRECAUTIONS ARE IN PLACE. IVF INFUSING ORDERED. NEEDS ATTENDED TO.
[2023-01-06] MEDS: LACTATED RINGERS 1,000 ML IV SCH ×3 (01:40→18:29)
[2023-01-06 04:00] VITALS: BP 149/67
[2023-01-06] MEDS: MORPHINE SULFATE 2 MG/ML SYR IVP PRN (05:30)
--- NOTE | 2023-01-06 05:55 | NUR ---
RECEIVED A CALL FROM DR. NOLASCO WITH ORDER TO GIVE ONE TIME FLEET ENEMA AT 0800. ORDER NOTED , CARRIED OUT.
[2023-01-06 07:03] LABS: ANION GAP 15.1 (8-16); CARBON DIOXIDE 24.6 mmol/L (21-32); CHLORIDE 104 mmol/L (98-107); CREATININE 0.8 mg/dL (0.6-1.3); GLUCOSE 85 mg/dL (74-106); POTASSIUM 3.7 mmol/L (3.5-5.1); SODIUM SERUM 140 mmol/L (136-145); UREA NITROGEN, BLOOD 13 mg/dL (7-18)
[2023-01-06 07:07] LABS: BASOPHILS % (AUTO) 0.2 % (0.0-2.0); EOSINOPHILS # (AUTO) 0.1 K/uL (0-0.4); EOSINOPHILS % (AUTO) 1.6 % (0.0-4.0); HEMOGLOBIN 12.1 g/dL (12.0-18.0); LYMPHOCYTES # (AUTO) 0.9 K/uL (2.0-11.5); LYMPHOCYTES % (AUTO) 11.9 % (20.5-51.1); MEAN CORPUSCULAR HEMOGLOBIN 31 pg (27-31); MEAN CORPUSCULAR HGB CONC 34 g/dL (33-37); MEAN CORPUSCULAR VOLUME 90.7 fL (80-94); MONOCYTES # (AUTO) 0.7 K/uL (0.8-1.0); MONOCYTES % (AUTO) 9.3 % (1.7-9.3); NEUTROPHILS # (AUTO) 6.1 K/uL (1.8-7.7); PLATELET COUNT (AUTO) 260 K/uL (140-450); RED BLOOD CELL COUNT(AUTO) 3.97 MIL/uL (4.20-6.10); RED CELL DISTRIBUTION WIDTH 13.2 % (11.6-13.7)
[2023-01-06 07:08] LABS: MAGNESIUM 1.7 mg/dL (1.8-2.4); PHOSPHORUS 2.9 mg/dL (2.5-4.9)
--- NOTE | 2023-01-06 07:20 | NUR ---
RECEIVED REPORT FROM FERMENTER OPERATOR NURSE. PATIENT LYING DOWN IN BED WATCHING TV. NO DISTRESS NOTED. DENIES ANY PAIN. IV SITE INTACT, PATENT, INFUSING IVF PER MD ORDERS. SKIN INTACT. ABD DISTENDED. REVIEWED PLAN OF CARE WITH PATIENT. VERBALIZED UNDERSTANDING. SAFETY MEASURES IN PLACE, CALL LIGHT WITHIN REACH. WILL CONTINUE TO MONITOR.
[2023-01-06 08:00] VITALS: BP 146/74
[2023-01-06] MEDS ORDERED: SODIUM PHOSPHATE 118 ML ENEM RC SCH ×3 (08:00→12:00)
[2023-01-06] MEDS: PANTOPRAZOLE 40 MG INJ VIAL IVP SCH ×2 (08:42→20:01)
--- NOTE | 2023-01-06 08:42 | NUR ---
FLEET ENEMA X 1 GIVEN PER MD ORDERS. SCHEDULED MEDICATIONS DUE GIVEN. WILL CONTINUE TO MONITOR.
--- NOTE | 2023-01-06 12:14 | NUR ---
3RD FLEET ANEMIA GIVEN, BM IS LIGHT, WATERY STOOL.
--- NOTE | 2023-01-06 14:00 | NUR ---
01/06/23 RD INITIAL ASSESSMENT COMPLETED PLEASE REFER TO NUTRITION ASSESSMENT UNDER CARE ACTIVITY FOR ESTIMATED NUTRITIONAL NEEDS. 1. MONITOR NPO STATUS 2. RECOMMEND CARDIAC DIET WHEN/IF MEDICALLY APPROPRIATE 3. RD TO FOLLOW-UP 3-5 DAYS, MODERATE RISK REVIEWED BY MELISSA RAHMAN RD
--- NOTE | 2023-01-06 14:17 | NUR ---
DC PLANNING ASSESSMENT COMPLETE PLEASE REFER TO ASSESSMENT FOR ADDITIONAL DETAILS TENTATIVE DC PLAN IS FOR PT TO RETURN TO [facility] ONCE MEDICALLY CLEARED BY PHYSICIAN. PHYSICIAN TO SPEAK TO PT AND FAMILY ABOUT PALLIATIVE CARE. Addendum: 01/06/23 at 1418 by John MEJIAS Amended: Links added.
--- NOTE | 2023-01-06 14:30 | NUR ---
OR NURSES ON UNIT TO TAKE PATIENT FOR COLONOSCOPY. WILL CONTINUE TO MONITOR WHEN PATIENT RETURNS.
[2023-01-06] MEDS ORDERED: LIDOCAINE 2% 100 MG/5 ML UJET TP ONE (15:01)
[2023-01-06] MEDS ORDERED: PROPOFOL 200 MG/20 ML VIAL IV ONE ×2 (15:05→15:14)
[2023-01-06 16:00] VITALS: BP 150/94
--- NOTE | 2023-01-06 16:45 | NUR ---
PATIENT BACK ON UNIT FROM OR. NO DISTRESS NOTED. DENIES ANY PAIN, NAUSEA.
[2023-01-06] MEDS ORDERED: MAG SULF 2000 MG/WATER PREMIX 50 ML IV SCH (18:30)
--- NOTE | 2023-01-06 19:15 | NUR ---
RECEIVED PT IN BED ASLEEP, EASILY AWAKEN BY VERBAL STIMULI. DENIES PAIN AT THIS TIME. NO ACUTE RESPIRATORY DISTRESS. SKIN WARM AND DRY TO TOUCH. SAFETY PRECAUTIONS IN PLACE, CALL LIGHT IN REACH.
[2023-01-06 20:00] VITALS: BP 129/50
--- NOTE | 2023-01-06 20:30 | NUR ---
INCONTINENT OF URINE, PERINEAL CARE RENDERED. MADE COMFORTABLE IN BED, CALL LIGHT WITHIN REACH.
--- NOTE | 2023-01-07 | NUR ---
ROUNDING DONE, PT ASLEEP. BREATHING EVEN AND UNLABORED.
[2023-01-07] MEDS: MORPHINE SULFATE 2 MG/ML SYR IVP PRN (03:18)
--- NOTE | 2023-01-07 06:22 | NUR ---
PATIENT IS ASLEEP. NO DISTRESS NOTED. ALL NEEDS ATTENDED TO. SAFETY PRECAUTIONS MAINTAINED DURING THE SHIFT, CALL LIGHT AND URINAL REMAINS WITHIN REACH.
[2023-01-07 06:55] LABS: BASOPHILS % (AUTO) 0.4 % (0.0-2.0); EOSINOPHILS # (AUTO) 0.2 K/uL (0-0.4); EOSINOPHILS % (AUTO) 2.2 % (0.0-4.0); HEMATOCRIT 34.4 % (36-52); HEMOGLOBIN 11.4 g/dL (12.0-18.0); LYMPHOCYTES # (AUTO) 0.8 K/uL (2.0-11.5); LYMPHOCYTES % (AUTO) 9.1 % (20.5-51.1); MEAN CORPUSCULAR HEMOGLOBIN 30 pg (27-31); MEAN CORPUSCULAR HGB CONC 33 g/dL (33-37); MEAN CORPUSCULAR VOLUME 91.5 fL (80-94); MONOCYTES # (AUTO) 0.8 K/uL (0.8-1.0); MONOCYTES % (AUTO) 9.2 % (1.7-9.3); NEUTROPHILS # (AUTO) 6.6 K/uL (1.8-7.7); NEUTROPHILS % (AUTO) 79.1 % (42.2-75.2); PLATELET COUNT (AUTO) 238 K/uL (140-450); RED BLOOD CELL COUNT(AUTO) 3.76 MIL/uL (4.20-6.10); RED CELL DISTRIBUTION WIDTH 13.4 % (11.6-13.7); WHITE BLOOD COUNT (AUTO) 8.4 K/uL (4.8-10.8)
[2023-01-07 06:56] LABS: ALBUMIN 2.7 g/dL (3.4-5.0); ANION GAP 15.4 (8-16); ASPARTATE AMINOTRANSFERASE 18 U/L (15-37); CARBON DIOXIDE 23.1 mmol/L (21-32); CHLORIDE 104 mmol/L (98-107); CREATININE -0.5 mg/dL (0.6-1.3); GLUCOSE 93 mg/dL (74-106); MAGNESIUM 1.8 mg/dL (1.8-2.4); PHOSPHORUS 2.9 mg/dL (2.5-4.9); POTASSIUM 3.5 mmol/L (3.5-5.1); SODIUM SERUM 139 mmol/L (136-145); TOTAL BILIRUBIN 0.7 mg/dL (0.0-1.0); UREA NITROGEN, BLOOD 10 mg/dL (7-18)
--- NOTE | 2023-01-07 07:05 | NUR ---
RECEIVED REPORT FROM TECHNICAL RESEARCH SCIENTIST NURSE FOR CONTINUITY OF CARE. PT IS ASLEEP AWAKEN BY NAME, NO SIGNS OF DISTRESS. CALL JOEL WITHIN REACH. WILL CONTINUE TO MONITOR.
[2023-01-07 08:00] VITALS: BP 119/56
[2023-01-07] MEDS: LACTATED RINGERS 1,000 ML IV SCH (09:02)
[2023-01-07] MEDS: PANTOPRAZOLE 40 MG INJ VIAL IVP SCH (09:04)
--- NOTE | 2023-01-07 16:10 | NUR ---
PT DISCHARGED TO [facility] , DISCHARGE INSTRUCTION GIVEN, IV AND ID BAND REMOVED, PT LEFT THE UNIT WITHOUT ANY SOB OR DISCOMFORT.[id number]
== END 2023-01-07 16:15 | DRG 374 ==
LOC: MED 22:50 → MMU 01-05 05:41 → MTU 01-05 07:21
PROVIDERS: ADMIT Internal Medicine; ATTEND Internal Medicine
PROC: 0DBK8ZX Excision of Ascending Colon, Via Natural or Artificial Opening Endoscopic, Diagnostic (ICD-10-PCS; principal; 2023-01-06 14:30)
DX: C18.9 Malignant neoplasm of colon, unspecified (principal); E43 Unspecified severe protein-calorie malnutrition; K56.609 Unspecified intestinal obstruction, unspecified as to partial versus complete obstruction; Z68.1 Body mass index [BMI] 19.9 or less, adult; C78.5 Secondary malignant neoplasm of large intestine and rectum; C78.6 Secondary malignant neoplasm of retroperitoneum and peritoneum; Z20.822 Contact with and (suspected) exposure to COVID-19; K62.3 Rectal prolapse; I10 Essential (primary) hypertension; N40.0 Benign prostatic hyperplasia without lower urinary tract symptoms; K63.9 Disease of intestine, unspecified; E78.5 Hyperlipidemia, unspecified; J44.9 Chronic obstructive pulmonary disease, unspecified; E87.6 Hypokalemia; Z79.01 Long term (current) use of anticoagulants; Z79.899 Other long term (current) drug therapy
CPT/HCPCS: 36415; 71045; 80048; 80053; 81003; 83690; 83735; 83880; 84100; 84154; 85025; 85610; 85730; 86886; 86900; 86901; 87081; 88305; 88313; 88342; 96361; 96374; 96375; 99285; C9113; J2270; J2704; J3475; J7030; Q0092

== ENCOUNTER 2023-01-14 07:33 | Emergency (ER) | payer OTHER ==
[~2023-01-14] VITALS: Ht 157.5 cm; Wt 57.2 kg
[~2023-01-14 07:33] MED LIST changes: +ACET-2619 PO; +APIX5TAB PO; +BISA-218 RC; +DOCU-299 PO; +FLEPED RC; +TUBE5SOL28 INJ
--- NOTE | 2023-01-14 07:33 | NUR ---
BIBA BLS TO ER BED 4
[2023-01-14 07:34] VITALS: BP 146/66
[2023-01-14] MEDS ORDERED: PANTOPRAZOLE 40 MG INJ VIAL IVP ONE (07:55)
[2023-01-14] MEDS ORDERED: ONDANSETRON 4 MG/2 ML VIAL IVP ONE (07:55)
[2023-01-14] MEDS ORDERED: NACL 0.9% 500 ML IV ONE (07:55)
[2023-01-14] MEDS ORDERED: MORPHINE SULFATE 4 MG/ML SYR IVP ONE (07:55)
[2023-01-14] MEDS ORDERED: METOCLOPRAMIDE 10 MG/2 ML INJ VIAL IVP ONE (08:30)
[2023-01-14 08:47] LABS: PROTHROMBIN TIME 17.2 secs (10.8-13.4)
[2023-01-14 08:48] LABS: BASOPHILS % (AUTO) 0.2 % (0.0-2.0); EOSINOPHILS % (AUTO) 0.3 % (0.0-4.0); HEMATOCRIT 36.3 % (36-52); HEMOGLOBIN 12.4 g/dL (12.0-18.0); LYMPHOCYTES # (AUTO) 0.5 K/uL (2.0-11.5); LYMPHOCYTES % (AUTO) 5.3 % (20.5-51.1); MEAN CORPUSCULAR HEMOGLOBIN 31 pg (27-31); MEAN CORPUSCULAR HGB CONC 34 g/dL (33-37); MEAN CORPUSCULAR VOLUME 90.5 fL (80-94); MONOCYTES % (AUTO) 9.9 % (1.7-9.3); NEUTROPHILS # (AUTO) 8.7 K/uL (1.8-7.7); NEUTROPHILS % (AUTO) 84.3 % (42.2-75.2); PLATELET COUNT (AUTO) 301 K/uL (140-450); RED BLOOD CELL COUNT(AUTO) 4.01 MIL/uL (4.20-6.10); RED CELL DISTRIBUTION WIDTH 13.6 % (11.6-13.7); WHITE BLOOD COUNT (AUTO) 10.3 K/uL (4.8-10.8)
[2023-01-14 08:53] LABS: ALBUMIN 3.2 g/dL (3.4-5.0); ANION GAP 15.5 (8-16); ASPARTATE AMINOTRANSFERASE 36 U/L (15-37); CARBON DIOXIDE 29.1 mmol/L (21-32); CHLORIDE 99 mmol/L (98-107); CREATININE 0.8 mg/dL (0.6-1.3); GLUCOSE 119 mg/dL (74-106); LIPASE 90 U/L (73-393); POTASSIUM 3.6 mmol/L (3.5-5.1); SODIUM SERUM 140 mmol/L (136-145); TOTAL BILIRUBIN 4.1 mg/dL (0.0-1.0); UREA NITROGEN, BLOOD 19 mg/dL (7-18)
--- NOTE | 2023-01-14 08:56 | NUR ---
N/V WITH COFFEE GROUND EMESIS, ZOFRAN NOT EFFECTIVE, MADE AWARE, ADDITIONAL ORDERS RECEIVED AND CARRIED OUT
--- NOTE | 2023-01-14 10:23 | NUR ---
PT STILL UNABLE TO PROVIDE URINE.
[2023-01-14] MEDS ORDERED: PANT40EC PO ×2 (10:53→10:54)
[2023-01-14] MEDS ORDERED: PHEN28OI6 TP (10:56)
[2023-01-14] MEDS ORDERED: LID5T TP ×2 (11:01→11:02)
--- NOTE | 2023-01-14 11:04 | NUR ---
MED REC COMPLETE.
--- NOTE | 2023-01-14 12:22 | NUR ---
PER MD PHILLIPS, PT INPATIENT ADMISSION CANCELLED, PT WILL HAVE SEPERATE PROCEDURE AT FACILITY.
--- NOTE | 2023-01-14 12:39 | NUR ---
GLASS CURVATURE GAUGER MAIA AWARE PT WILL BE RETURNING BACK TO FACILITY.
[2023-01-14 12:46] LABS: APPEARANCE,URINE CLEAR (CLEAR); BILIRUBIN,URINE 2+ (NEGATIVE); BLOOD, URINE NEGATIVE (NEGATIVE); COLOR,URINE YELLOW (YELLOW); LEUKOCYTE ESTERASE ,URINE NEGATIVE (NEGATIVE); NITRITE, URINE NEGATIVE (NEGATIVE); UGLUCOSE NEGATIVE (NEGATIVE)
[2023-01-14 13:45] VITALS: BP 145/78
--- NOTE | 2023-01-14 13:45 | NUR ---
Patient discharged with v/s stable. Written and verbal after care instructions given and explained. Patient verbalized understanding. Ambulance Transport with to custodial. All questions addressed prior to discharge. Advised to follow up with PMD.
[2023-01-14 14:09] LABS: RBC,URINE 0-5 /HPF (0-5)
== END 2023-01-14 13:45 ==
LOC: MED 07:33 → MTU 10:43 → UNDOADMIN 10:43 → MTU 12:07 → MED 12:45
DX: K92.2 Gastrointestinal hemorrhage, unspecified (principal); Z20.822 Contact with and (suspected) exposure to COVID-19; D65 Disseminated intravascular coagulation [defibrination syndrome]; I82.463 Acute embolism and thrombosis of calf muscular vein, bilateral; J44.9 Chronic obstructive pulmonary disease, unspecified; I10 Essential (primary) hypertension; E78.5 Hyperlipidemia, unspecified; Z85.038 Personal history of other malignant neoplasm of large intestine; Z79.899 Other long term (current) drug therapy
CPT/HCPCS: 36415; 71045; 74176; 80053; 81001; 83690; 83880; 84484; 85025; 85610; 85730; 86886; 86900; 86901; 87426; 93005; 96374; 96375; 99291; C9113; J2270; J2405; J2765; J7030; 96361

== ENCOUNTER 2023-01-16 21:01 | Inpatient (IN) | payer OTHER ==
[~2023-01-16] VITALS: Ht 170.2 cm; Wt 58.5 kg
[~2023-01-16 21:01] MED LIST changes: -ACET-2619 PO; -ACET-3114 PO; -BISA-218 RC; +LID5T TP; +PANT40EC PO; +PHEN28OI6 TP; -TUBE5SOL28 INJ
[2023-01-16 21:03] VITALS: BP 151/91
--- NOTE | 2023-01-16 21:03 | NUR ---
ALEENA BLS TO BED #3
--- NOTE | 2023-01-16 21:25 | NUR ---
WALKED BLOOD AND SWAB TO LAB.
[2023-01-16 21:41] LABS: BASOPHILS % (AUTO) 0.1 % (0.0-2.0); EOSINOPHILS # (AUTO) 0.1 K/uL (0-0.4); EOSINOPHILS % (AUTO) 0.4 % (0.0-4.0); HEMATOCRIT 39.1 % (36-52); LYMPHOCYTES # (AUTO) 0.7 K/uL (2.0-11.5); LYMPHOCYTES % (AUTO) 5.9 % (20.5-51.1); MEAN CORPUSCULAR HEMOGLOBIN 30 pg (27-31); MEAN CORPUSCULAR HGB CONC 33 g/dL (33-37); MEAN CORPUSCULAR VOLUME 91.7 fL (80-94); MONOCYTES # (AUTO) 2.1 K/uL (0.8-1.0); MONOCYTES % (AUTO) 16.9 % (1.7-9.3); NEUTROPHILS # (AUTO) 9.3 K/uL (1.8-7.7); NEUTROPHILS % (AUTO) 76.7 % (42.2-75.2); PLATELET COUNT (AUTO) 300 K/uL (140-450); RED BLOOD CELL COUNT(AUTO) 4.27 MIL/uL (4.20-6.10); RED CELL DISTRIBUTION WIDTH 13.8 % (11.6-13.7); WHITE BLOOD COUNT (AUTO) 12.1 K/uL (4.8-10.8)
[2023-01-16 22:33] LABS: ALBUMIN 3.4 g/dL (3.4-5.0); ANION GAP 12.2 (8-16); ASPARTATE AMINOTRANSFERASE 49 U/L (15-37); CARBON DIOXIDE 37.3 mmol/L (21-32); CHLORIDE 100 mmol/L (98-107); GLUCOSE 128 mg/dL (74-106); LIPASE 153 U/L (73-393); POTASSIUM 3.5 mmol/L (3.5-5.1); SODIUM SERUM 146 mmol/L (136-145); TOTAL BILIRUBIN 5.5 mg/dL (0.0-1.0); UREA NITROGEN, BLOOD 34 mg/dL (7-18)
--- NOTE | 2023-01-16 23:05 | NUR ---
Pt went to Ct with oxygen. Rn accompny the pt.
[2023-01-16] MEDS ORDERED: NACL 0.9% 2,000 ML IV ONE (23:10)
[2023-01-16] MEDS ORDERED: ONDANSETRON 4 MG/2 ML VIAL IVP ONE (23:10)
[2023-01-17] VITALS (13 sets, daily range): BP systolic 86–137; BP diastolic 51–100
--- NOTE | 2023-01-17 | NUR ---
pt is actively vomitting. Pt is alert and oriented and pt is able to answers questions.
[2023-01-17 00:21] LABS: APPEARANCE,URINE CLEAR (CLEAR); BILIRUBIN,URINE 2+ (NEGATIVE); BLOOD, URINE NEGATIVE (NEGATIVE); COLOR,URINE YELLOW (YELLOW); LEUKOCYTE ESTERASE ,URINE NEGATIVE (NEGATIVE); NITRITE, URINE NEGATIVE (NEGATIVE); UGLUCOSE NEGATIVE (NEGATIVE)
[2023-01-17] MEDS ORDERED: ACET-3114 PO (00:36)
[2023-01-17] MEDS ORDERED: ACET-9525 PO (00:36)
[2023-01-17] MEDS ORDERED: ACET-2619 PO (00:36)
[2023-01-17] MEDS ORDERED: FENT100T TD (00:36)
[2023-01-17] MEDS ORDERED: ONDA-188 PO (00:36)
[2023-01-17] MEDS ORDERED: PANT40EC PO (00:36)
[2023-01-17] MEDS ORDERED: LID5T TP (00:36)
[2023-01-17] MEDS ORDERED: NACL 0.9% 500 ML IV ONE ×2 (03:00→17:25)
[2023-01-17] MEDS ORDERED: PIPERACILLIN/TAZOBACTAM 3.375 GM in DEXTROSE 5% 50 ML IV ONE (03:00)
[2023-01-17] MEDS ORDERED: PANTOPRAZOLE 80 MG in NACL 0.9% 100 ML IVP SCH (03:30)
[2023-01-17] MEDS ORDERED: PANTOPRAZOLE 40 MG INJ VIAL ONE (03:34)
[2023-01-17] MEDS ORDERED: PIPERACILLIN/TAZOBACTAM 3.375 GM VIAL IV ONE ×2 (03:35→19:39)
--- NOTE | 2023-01-17 04:30 | NUR ---
Admitted from ED, with chief complaint of coffee ground emesis, chest and abdominal pain. 72 y/o ,Male, Cooperative, on 2L o2 via nc, sating at 99%. IV on R FA, g22 and LAC g22. Pt is currently vomiting. oriented to call light, bed, phone,television, bathroom, smoking policy, visiting hours, procedures, ID bracelet on. Belongings list checked.
[2023-01-17] MEDS: NACL 0.9% 1,000 ML IV SCH ×2 (04:45→12:45)
--- NOTE | 2023-01-17 04:54 | NUR ---
[facility] Admited to telemetry . Will go to room 108 B. Belongings list completed. Report to [employer].
[2023-01-17] MEDS ORDERED: ONDANSETRON 4 MG/2 ML VIAL IVP PRN (04:55)
--- NOTE | 2023-01-17 04:55 | NUR ---
NG TUBE INSERTED. STAT CXR ORDERED FOR PLACEMENT. WILL PLACE ON IN LOW INTERMITTENT SUCTION ONCE PLACEMENT IS CONFIRMED.
--- NOTE | 2023-01-17 06:39 | NUR ---
NGT SET TO LOW INTERMITTENT SUCTION. PT TOLERATING WELL. WILL CONTINUE TO MONITOR.
--- NOTE | 2023-01-17 07:30 | NUR ---
RECEIVED REPORT FROM CUSTOMER CARE SPECIALIST NURSEJUSTINE AT 118/79, ON TELE MONITOR SHOWING ST AT 111. PT HAS NG TUBE IN, ON LOW INTERMITTENT SUCTION. PT AWAKE WITH HEAVY SHAKING, CUSTOMER CARE SPECIALIST ENDORSED PT BEING HARD OF HEARING. ALL SAFETY MEASURES IN PLACE, CALL LIGHT WITHIN REACH.
[2023-01-17] MEDS: PANTOPRAZOLE 40 MG INJ VIAL IVP SCH ×2 (08:56→21:00)
--- NOTE | 2023-01-17 10:01 | NUR ---
PATIENT HAS BEEN SCREENED AND CATEGORIZED MODERATE NUTRITION RISK. PATIENT WILL BE SEEN WITHIN 3-5 DAYS OF ADMISSION. 01/17/23-01/22/[address]
--- NOTE | 2023-01-17 13:19 | NUR ---
FAMILY AT BEDSIDE, ALL QUESTIONS ANSWERED. PT STATES HE FEEL SOB, CONNECTED TO PULSE OX, SPO2 IS 100% ON 2L NC. NO ACUTE S/S OF DISTRESS, CHEST RISING AND FALLING EVEN AND UNLABORED. EDUCATED ON NG TUBE CAUSING POSSIBLE IRRITATION. ALL OF FAMILY QUESTIONS ANSWERED.
[2023-01-17] MEDS ORDERED: NACL 0.9% 1,000 ML IV ONE (14:10)
--- NOTE | 2023-01-17 14:23 | NUR ---
MD WAS PAGED DUE TO HEART RATE IN THE 140S. 1L NS BOLUS ORDERED, WELL CONSULT WITH DAVID AND PULM. ORDERS PLACED AND FOLLOWED THROUGH. UPON STARTING NS BOLUS, PT BEGAN GAGGING. PRN ANTIEMETIC MEDICATION ADMINISTERED PER MD ORDER. ALL SAFETY MEASURES IN PLACE. FAMILY AT BEDSIDE
--- NOTE | 2023-01-17 14:47 | NUR ---
PAGED CONSTANCE REGARDING PTS 2200 CC OF BLACK OUTPUT FROM NG TUBE. ALSO PAGED DR HERNANDEZ REGARDING PTS HEART RATE AND BLOOD PRESSURE. DR HERNANDEZ AGREES WITH 1L BOLUS, NO OTHER ORDERS AT THIS TIME.
--- NOTE | 2023-01-17 16:25 | NUR ---
AT 1410, DR CLEMENT WAS PAGED REGARDING PTS HEART RATE BEING TACHY IN THE 140S. ORDERS RECEIVED AND CARRIED OUT, BOLUS STARTED AT 1420. AT 1450, BLOOD PRESSURE WAS REASSESSED AND IT WAS 108/73, HEART RATE STILL 140S, DR CLEMENT MADE AWARE. TRANSITION OF CARE SPECIALIST OBTAINED BLOOD PRESSURE AT 1540, READING 101/67 HEART RATE 140. AT 1604, RN REASSESSED PT, PT LETHARGIC, UNABLE TO ANSWER QUESTIONS OR PROVIDE NAME. CHANGE IN STATUS FROM AM WHEN PT WAS A&OX4. BLOOD PRESSURE 86/51, THEN 87/58, THEN 90/57, HEART RATE GOING HIGH 152. DR CLEMENT PAGED, CHARGE NURSE SAM RECEIVED TORB FOR ICU TRANSFER. PT MADE AWARE OF CHANGE AND POC. PT WAS PREPARED AND TRANSFERRED TO ICU BED 3, REPORT GIVEN TO ETHEL MARTINEZ.
--- NOTE | 2023-01-17 16:40 | NUR ---
PT TRANSFERRED VIA BED FROM TELE 108B TO ICU BED 3. REPORT RECEIVED FROM NAVEEN MARTINEZ. PT IS DROWSY, NO RESPONSE. ON NASAL CANNULA 4L. ST ON MONITOR, 137. PERIPHERAL IV TO LT AC 20G, INFUSING NS @ 100ML/H, IV TO LT FOREARM, 20G INFUSING PROTONIX @ 10ML/H. NPO. INCONTINENT, DIAPER IN USE. GENERALIZED WEAKNESS, BEDREST. PT HAD 2200 BLACK OUTPUT FROM NG TUBE, LOW BP, TACHYCARDIA, 1L NS BOLUS, GIVEN AT 1420 BY HANDWRITING EXPERT.
[2023-01-17 18:12] LABS: HEMATOCRIT 32.7 % (36-52); HEMOGLOBIN 10.8 g/dL (12.0-18.0); MEAN CORPUSCULAR HEMOGLOBIN 31 pg (27-31); MEAN CORPUSCULAR HGB CONC 33 g/dL (33-37); PLATELET COUNT (AUTO) 256 K/uL (140-450); RED BLOOD CELL COUNT(AUTO) 3.51 MIL/uL (4.20-6.10); RED CELL DISTRIBUTION WIDTH 14.5 % (11.6-13.7); WHITE BLOOD COUNT (AUTO) 13.2 K/uL (4.8-10.8)
[2023-01-17 18:48] LABS: ALBUMIN 2.7 g/dL (3.4-5.0); ANION GAP 15.2 (8-16); ASPARTATE AMINOTRANSFERASE 97 U/L (15-37); CARBON DIOXIDE 31.8 mmol/L (21-32); CHLORIDE 107 mmol/L (98-107); CREATININE 2.5 mg/dL (0.6-1.3); GLUCOSE 121 mg/dL (74-106); SODIUM SERUM 150 mmol/L (136-145); UREA NITROGEN, BLOOD 59 mg/dL (7-18)
[2023-01-17 19:01] LABS: BASOPHILS % (MANUAL) 0 % (0-2); EOSINOPHILS % (MANUAL) 0 % (0-4); LYMPHOCYTES % (MANUAL) 7 % (20-46); MONOCYTES % (MANUAL) 15 % (5-12)
--- NOTE | 2023-01-17 19:26 | NUR ---
ENDORSED TO ASSET MANAGEMENT COORDINATOR HENNY MARTINEZ FOR CONTINUITY OF CARE. ALL QUESTION ANSWERED.
[2023-01-17] MEDS: LACTATED RINGERS 1,000 ML IV SCH (19:30)
--- NOTE | 2023-01-17 20:00 | NUR ---
RECEIVED REPORT FROM DAY SHIFT NURSE. PT IS AWAKE AND ALERT. ON REQUIREMENTS ANALYST SHOWING ST AT 128. PERIPHERAL IV TO LT AC 20G, INFUSING NS @ 100ML/H, IV TO RT FOREARM, 20G INFUSING PROTONIX @ 10ML/H. NPO. PT CONNECTED TO PULSE OX WITH SPO2 IS 100% ON 2L NASAL CANNULA. PT HAS NG TUBE IN, ON LOW INTERMITTENT SUCTION WITH BLACK COLORED OUTPUT ON TUBE.
[2023-01-17] MEDS: PIPERACILLIN/TAZOBACTAM 3.375 GM in DEXTROSE 5% 50 ML IV SCH (20:01)
--- NOTE | 2023-01-17 20:40 | NUR ---
PATIENT WITH 150ML RESIDUAL; WILL HOLD TUBE PER ORDERS. WILL RECHECK IN HOUR. Addendum: 01/17/23 at 2040 by Jazmine Ramsey RN INCORRECT PATIENT; IGNORE THIS NOTE
[2023-01-17] MEDS ORDERED: ACETAMINOPHEN 325 MG TAB PO PRN (22:10)
[2023-01-18] VITALS (7 sets, daily range): BP systolic 100–138; BP diastolic 61–77
[2023-01-18 00:27] LABS: CARBON DIOXIDE 30.1 mmol/L (21-32); CHLORIDE 107 mmol/L (98-107); CREATININE 2.7 mg/dL (0.6-1.3); GLUCOSE 155 mg/dL (74-106); POTASSIUM 4.1 mmol/L (3.5-5.1); SODIUM SERUM 148 mmol/L (136-145)
[2023-01-18 00:30] LABS: UREA NITROGEN, BLOOD 65 mg/dL (7-18)
[2023-01-18] MEDS: LACTATED RINGERS 1,000 ML IV SCH ×3 (04:37→19:10)
[2023-01-18] MEDS ORDERED: PIPERACILLIN/TAZOBACTAM 3.375 GM VIAL IV ONE (04:46)
[2023-01-18] MEDS: PIPERACILLIN/TAZOBACTAM 3.375 GM in DEXTROSE 5% 50 ML IV SCH ×3 (04:57→21:03)
--- NOTE | 2023-01-18 07:15 | NUR ---
RECEIVED PATIENT FROM DIRECTOR OF SOFTWARE DEVELOPMENT NURSES JUAN RIVAS AND HENNY MARTINEZ. PATIENT ALERT AND ABLE TO FOLLOW SIMPLE COMMANDS. PERRL NOTED. NO ADVENTITIOUS LUNG SOUNDS HEARD UPON AUSCULTATION, CURRENTLY ON 4L NASAL CANULA AND O2 SATURATION AT 96%. SINUS TACHY ON MONITOR. ABDOMEN IS TENDER UPON TOUCH WITH ABDOMINAL QUADRANTS HYPOACTIVE. PATIENT HAS NGT TO SUCTION. PATIENT HAS LEFT 20G IV ON FOREARM CURRENTLY INFUSING LACTATED RINGERS AT 125 ML/HR. RIGHT 22G IV ON FOREARM. NO SKIN BREAKDOWN NOTED. STANDARD PRECAUTION WITH HOB 30 DEGREE FOR ASPIRATION PRECAUTION, BD WHEELS LOCKED AND IN LOWEST POSITION.
[2023-01-18] MEDS ORDERED: ACETAMINOPHEN 325 MG TAB PO PRN (07:16)
--- NOTE | 2023-01-18 07:22 | NUR ---
TRANSFER OF CARE TO DAY SHIFT, REPORT ENDORSED TO FABIOLA. MARTINEZ.
--- NOTE | 2023-01-18 07:41 | NUR ---
REVIEWED PMHX: COPD COLON CA HTN DVT; CXR 01/17/23; APPROPRIATE FOR HHN PRN THERAPY FOR SOB (COVERAGE)
--- NOTE | 2023-01-18 07:43 | NUR ---
RECEIVED ON SUPPLEMENTAL OXYGEN AT 4 LPM VIA NC SATURATION 100%; TITRATED FIO2 TO 2 LPM VENTURA/TRIM MACHINE ADJUSTER NOTIFIED
[2023-01-18] MEDS ORDERED: ALBUTEROL 0.083% 2.5 MG/3 ML NEBU INH PRN (07:45)
[2023-01-18 08:01] LABS: BASOPHILS % (AUTO) 0.1 % (0.0-2.0); EOSINOPHILS # (AUTO) 0.1 K/uL (0-0.4); EOSINOPHILS % (AUTO) 0.9 % (0.0-4.0); HEMATOCRIT 35.4 % (36-52); HEMOGLOBIN 11.4 g/dL (12.0-18.0); LYMPHOCYTES # (AUTO) 0.7 K/uL (2.0-11.5); LYMPHOCYTES % (AUTO) 5.7 % (20.5-51.1); MEAN CORPUSCULAR HEMOGLOBIN 30 pg (27-31); MEAN CORPUSCULAR HGB CONC 32 g/dL (33-37); MEAN CORPUSCULAR VOLUME 93.1 fL (80-94); MONOCYTES # (AUTO) 2.3 K/uL (0.8-1.0); MONOCYTES % (AUTO) 17.7 % (1.7-9.3); NEUTROPHILS # (AUTO) 9.9 K/uL (1.8-7.7); NEUTROPHILS % (AUTO) 75.6 % (42.2-75.2); PLATELET COUNT (AUTO) 265 K/uL (140-450); RED BLOOD CELL COUNT(AUTO) 3.81 MIL/uL (4.20-6.10); RED CELL DISTRIBUTION WIDTH 14.5 % (11.6-13.7); WHITE BLOOD COUNT (AUTO) 13.1 K/uL (4.8-10.8)
[2023-01-18 08:09] LABS: ANION GAP 14.5 (8-16); CARBON DIOXIDE 31.4 mmol/L (21-32); CHLORIDE 107 mmol/L (98-107); CREATININE 3.1 mg/dL (0.6-1.3); GLUCOSE 141 mg/dL (74-106); POTASSIUM 3.9 mmol/L (3.5-5.1); SODIUM SERUM 149 mmol/L (136-145)
[2023-01-18 08:13] LABS: MAGNESIUM 2.6 mg/dL (1.8-2.4); PHOSPHORUS 6.1 mg/dL (2.5-4.9)
[2023-01-18 08:20] LABS: UREA NITROGEN, BLOOD 69 mg/dL (7-18)
[2023-01-18] MEDS ORDERED: PANTOPRAZOLE 40 MG TABEC PO SCH (09:00)
[2023-01-18] MEDS ORDERED: HYDROcodone/APAP 5/325 MG 1 TAB TAB PO PRN (09:00)
--- NOTE | 2023-01-18 09:10 | NUR ---
DR OLIVEROS ROUNDED AT PATIENT BEDSIDE NO NEW ORDERS GIVEN
--- NOTE | 2023-01-18 09:33 | NUR ---
PT. WITH LOW JULISSA SCALE AT MODERATE TO HIGH RISK, CONTINUE TO FOLLOW PRESSURE INJURY PREVENTION INTERVENTIONS. -POSITIONING: TURN AND REPOSITION PATIENT Q 2H OR SOONER USE PILLOWS TO KEEP BONY PROMINENCES FROM DIRECT CONTACT WITH SURFACES USE REPOSITIONING WEDGES TO PROVIDE 30-DEGREE ANGLE FOR SIDE LYING POSITIONS OFFLOADING OR FOAM DRESSING TO ALL TUBING TO PREVENT MEDICAL DEVICES RELATED PRESSURE INJURY -RE-EVALUATING AND MANAGING INCONTINENCE MONITOR SKIN CONDITION DURING POSITION CHANGE DO NOT MASSAGE REDNESS, BONY PROMINENCES FREQUENT ROMMEL-CARE AND PROVIDE BARRIER CREAMS PRN IF SOILING MOISTURE CONTROL BY OFFER BED CASTANON/URINAL /ABSORBENT PAD TO WICK AND HOLD MOISTURE KEEP SKIN DRY AND PROTECT FROM FRICTION -MANAGE FRICTION/SHEAR/MOBILITY KEEP HOB AT THE LOWEST LEVEL OF ELEVATION NO MORE THAN 30 DEGREE UNLESS OTHERWISE CONTRAINDICATED USE LIFT SHEET OR TRANSFER DEVICE TO MOVE PATIENT AND PREVENT LATERAL SHEER. PROTECT HEELS, ELBOWS BONY PROMINENCES WITH SKIN BERRIES OR FOAM DRESSING IF EXPOSED TO FRICTION OFFLOAD BILATERAL HEELS BY PLACING PILLOWS UNDER CALVES AT ALL TIMES, UNLESS OTHERWISE CONTRAINDICATED -PRESSURE REDISTRIBUTION SURFACE THERAPY JENNIFER ISOFLEX MATTRESS -NUTRITION: PLEASE FOLLOW RD RECOMMENDATIONS AND OFFER NUTRITION SUPPLEMENTS IF ORDERED. PLEASE CONTACT WOUND CARE NURSE FOR ANY QUESTION AND CHANGE OF WOUND CONDITION.
[2023-01-18] MEDS: PANTOPRAZOLE 40 MG INJ VIAL IVP SCH ×2 (09:56→21:03)
--- NOTE | 2023-01-18 12:06 | NUR ---
DR. HERNANDEZ ROUNDED AT PATIENT BEDSIDE NO NEW ORDERS GIVEN.
--- NOTE | 2023-01-18 13:08 | NUR ---
DC PLANNING A 72Y.O.NIGERIEN MALE PATIENT RESIDENT OF [facility] READMITTED FOR COFFEE GROUND EMESIS,CHEST AND STOMACH PAIN 01/17/23.WAS HERE AT [facility] 01/14 FOR THE SAME PROBLEMS.PATIENT HAS HX OF COLON CA ,COPD,BPH AND HLD.ADMITTED TO ICU FOR TACHYCARDIA AND HYPOTENSION.RESPONDED TO IV HYDRATION.CXR WITH BILATERAL SMALL PLEURAL EFFUSION.PULMO ON BOARD.TROPONIN LEVEL NORMAL.EF 55-60%.CARDIO FOLLOWING.CT ABDOMEN/PELVIS SHOWS GASTRIC OUTLET OBSTRUCTION.WITH PENDING GASTRIC STENTING PER GI.ON PROTONIX.HGB STABLE.WBC 13.1.ON ZOSYN.DC PLAN- BACK TO [facility] ONCE GASTRIC STENTING IS COMPLETED AND PATIENT CONDITION IMPROVES.CM TO FOLLOW.. Addendum: 01/19/23 at 1550 by Joanie Conde HOSPICE EVAL DISCUSSED WITH MARCIN [phone]. PER ANGELO, THEY WILL NOT BE COVERING SNF UNTIL THEY GET A DENIAL LETTER FROM MEDICARE. DR. GALARZA MADE AWARE. Addendum: 01/20/23 at 0913 by OMEGA MORFIN RECEIVED ORDER FOR PATIENT TO GO BACK TO SNF AND PROCEED WITH HOSPICE THERE. FAXED ALL PAPERWORK TO [facility]. WILL FOLLOW UP WITH RESPONSE FROM [facility]. Addendum: 01/20/23 at 1048 by OMEGA MORFIN RECEIVED AN ORDER FOR PATIENT TO GO BACK TO SNF. FAXED ALL PAPERWORK TO [facility] LOCATED AT [address] [place] [address]. SPOKE WITH KAELYN AND PATIENT WILL BE GOING TO ROOM 33[address] UNDER DR WANG. TRANSPORTATION ARRANGED WITH [facility] WITH A 1400 GREEN CHAIN OPERATOR TIME. NURSE SUSAN AND SHAWN AWARE OF THE ABOVE INFORMATION.
[2023-01-18] MEDS ORDERED: MORPHINE SULFATE 2 MG/ML SYR IVP PRN (13:45)
--- NOTE | 2023-01-18 15:50 | NUR ---
SEEN AND EXAMINED AT BEDSIDE BY DR. NOLASCO
[2023-01-18] MEDS ORDERED: PHENYLEPHRINE 10 MG/ML VIAL ONE (16:00)
--- NOTE | 2023-01-18 16:00 | NUR ---
TRANSFERRED TO OR BY OR NURSES.
[2023-01-18] MEDS ORDERED: PROPOFOL 200 MG/20 ML VIAL IV ONE ×3 (16:05→16:53)
[2023-01-18] MEDS ORDERED: hydrALAZINE 20 MG/ML VIAL IVP PRN (17:07)
[2023-01-18] MEDS ORDERED: ONDANSETRON 4 MG/2 ML VIAL IVP PRN (17:10)
[2023-01-18] MEDS ORDERED: NACL 0.9% 1,000 ML IV SCH (17:10)
--- NOTE | 2023-01-18 19:11 | NUR ---
RECEIVED PT ON SUPPLEMENTAL OXYGEN VIA NASAL CANNULA ON 5L PT SATURATION IS 100%. TURNED PT DOWN TO 3L SATURATION AT THIS TIME IS 100%. RN NOTIFIED . WILL CONTINUE TO MONITOR
--- NOTE | 2023-01-18 19:15 | NUR ---
ENDORSED REPORT TO JAVASCRIPT UI DEVELOPER REGISTRY JUAN MOSS. FOR CONTINUITY OF CARE.
[2023-01-18] MEDS: NACL 0.9% 1,000 ML IV SCH ×2 (19:27→19:42)
[2023-01-19] VITALS (19 sets, daily range): BP systolic 99–128; BP diastolic 60–77
[2023-01-19] MEDS: LACTATED RINGERS 1,000 ML IV SCH (03:03)
[2023-01-19] MEDS: PIPERACILLIN/TAZOBACTAM 3.375 GM in DEXTROSE 5% 50 ML IV SCH ×3 (05:15→20:05)
--- NOTE | 2023-01-19 07:08 | NUR ---
REPORT GIVEN TO YARITZA MARTINEZ. PTS MENTATION HAS IMPROVED TO [facility]. DAUGHTER CAME TO VISIT LAST NIGHT FROM THE [facility] AND EXPRESSED WISHES TO SPEAK TO MD. PT REMAINED HEMODYNAMICALLY STABLE BUT REMAINED TACHYCARDIC. AFEBRILE. SKIN IS FREE IS FROM SKIN BREAKDOWN. MEPILEX IN PLACE.
--- NOTE | 2023-01-19 07:15 | NUR ---
RECEIVED PATIENT FROM DIRECTOR OF BRAND MARKETING NURSE ISA. PATIENT ALERT AND ABLE TO FOLLOW SIMPLE COMMANDS. PERRL NOTED. NO ADVENTITIOUS LUNG SOUNDS HEARD UPON AUSCULTATION, CURRENTLY ON 2L NASAL CANULA AND O2 SATURATION AT 96%. SINUS TACHY ON MONITOR. ABDOMEN IS TENDER UPON TOUCH WITH ABDOMINAL QUADRANTS HYPOACTIVE. PATIENT HAS NGT TO SUCTION. PATIENT HAS LEFT 20G IV ON FOREARM CURRENTLY INFUSING LACTATED RINGERS AT 125 ML/HR. RIGHT 22G IV ON FOREARM. NO SKIN BREAKDOWN NOTED. STANDARD PRECAUTION WITH HOB 30 DEGREE FOR ASPIRATION PRECAUTION, BD WHEELS LOCKED AND IN LOWEST POSITION.
[2023-01-19] MEDS: DEXT 5% / NACL 0.45% 1,000 ML IV SCH ×2 (08:45→21:20)
[2023-01-19] MEDS: PANTOPRAZOLE 40 MG INJ VIAL IVP SCH ×2 (08:45→21:00)
--- NOTE | 2023-01-19 19:10 | NUR ---
ENDORSED REPORT TO SPINNING LATHE OPERATOR NURSE JUAN OWEN. FOR CONTINUITY OF CARE.
--- NOTE | 2023-01-19 19:15 | NUR ---
RECEIVED PT ON RA. AT THIS TIME PT SATURATION IS 100% NO DISTRESS NOTED WILL CONTINUE TO MONITOR
--- NOTE | 2023-01-19 19:15 | NUR ---
RECEIVED REPORT FROM [facility] NURSE ANDRES. ALL CARES ASSUMED. RECEIVED PT ON BED ON SEMI-MELENDEZ'S POSITION, AWAKE, A LITTLE CONFUSED. NOTED ON SINUS TACHYCARDIA ON BEDSIDE MONITOR. ON NASAL CANNULA AT 1 L/MIN. WITH NG TUBE OVER RIGHT NARE ON CONTINUOUS SUCTION WITH GREENISH OUTPUT NOTED AT 800ML. WITH PERIPHERAL ANTECUBITAL ACCESS OVER RIGHT ARM G 20 WITH D5.45 NS AT 75 ML/HR - PATENT AND FLOWING WELL. WITH ANOTHER IV LINE OVER LEFT ARM, G22 - PATENT AND INTACT. WITH CONDOM CATHETER DRAINING TO BAG BY GRAVITY. SAFETY PRECAUTIONS IN PLACE AND MAINTAINED.
--- NOTE | 2023-01-19 22:58 | NUR ---
OBSERVED SIGNS & SYMPTOMS OF PAIN USING FLACC-7. ASSESSED SOURCE OF PAIN, PT VERBALIZED IN LOW-TONE "MASAKIT MASYADO DITO" (THE PAIN IS TOO MUCH RIGHT HERE) POINTING AT ABDOMINAL AREA. COMFORT MEASURES PROVIDED AND PRN MED OF MORPHINE IV GIVEN SLOWLY. KEPT RESTED.
[2023-01-20] VITALS (8 sets, daily range): BP systolic 116–131; BP diastolic 69–84
[2023-01-20] MEDS: PIPERACILLIN/TAZOBACTAM 3.375 GM in DEXTROSE 5% 50 ML IV SCH ×3 (04:53→13:56)
--- NOTE | 2023-01-20 08:00 | NUR ---
Received report from Zeferino MARTINEZ no new change of pt condition. Plant to transfer to SNF pending insurance approval.
[2023-01-20] MEDS: PANTOPRAZOLE 40 MG INJ VIAL IVP SCH (10:37)
--- NOTE | 2023-01-20 12:03 | NUR ---
01/20/23 RD INITIAL ASSESSMENT COMPLETED PLEASE REFER TO NUTRITION ASSESSMENT UNDER CARE ACTIVITY FOR ESTIMATED NUTRITIONAL NEEDS. 1. CONTINUE NPO DIET TOLERATED AND ADVANCE TO CLEAR LIQUID DIET ONCE MEDICALLY APPROPRIATE. 2. RD WILL CONTINUE TO MONITOR WEIGHT, LABS, GI FUNCTION AND PO INTAKE IF MEDICALLY APPROPRIATE. 3. RD TO FOLLOW-UP 3-5 DAYS, MODERATE RISK LORNA HALEY RD
[2023-01-20] MEDS ORDERED: NACL 0.9% 1,000 ML IV SCH (13:55)
--- NOTE | 2023-01-20 15:34 | NUR ---
pt was picked by transport [facility] transport to [facility] Addendum: 01/20/23 at 1538 by LASHANDA KEY RN [facility] pt v/s 111 HR BP 120/75 O2sat 100% on RA 17 RR no /co pain no N/V noted.
== END 2023-01-20 16:00 | DRG 871 ==
LOC: MED 21:01 → MTU 01-17 04:11 → MIC 01-17 16:33
PROVIDERS: ADMIT Family Medicine; ATTEND Family Medicine
PROC: 0D9680Z Drainage of Stomach with Drainage Device, Via Natural or Artificial Opening Endoscopic (ICD-10-PCS; 2023-01-18)
PROC: 0DJ08ZZ Inspection of Upper Intestinal Tract, Via Natural or Artificial Opening Endoscopic (ICD-10-PCS; principal; 2023-01-18 14:20)
DX: A41.9 Sepsis, unspecified organism (principal); E43 Unspecified severe protein-calorie malnutrition; J96.00 Acute respiratory failure, unspecified whether with hypoxia or hypercapnia; I82.220 Acute embolism and thrombosis of inferior vena cava; N17.0 Acute kidney failure with tubular necrosis; E87.0 Hyperosmolality and hypernatremia; K56.609 Unspecified intestinal obstruction, unspecified as to partial versus complete obstruction; C18.9 Malignant neoplasm of colon, unspecified; C78.6 Secondary malignant neoplasm of retroperitoneum and peritoneum; C78.89 Secondary malignant neoplasm of other digestive organs; C78.4 Secondary malignant neoplasm of small intestine; E87.3 Alkalosis; Z20.822 Contact with and (suspected) exposure to COVID-19; D64.9 Anemia, unspecified; N40.0 Benign prostatic hyperplasia without lower urinary tract symptoms; E78.5 Hyperlipidemia, unspecified; R65.20 Severe sepsis without septic shock; J44.9 Chronic obstructive pulmonary disease, unspecified; Z85.038 Personal history of other malignant neoplasm of large intestine; Z79.2 Long term (current) use of antibiotics; Z79.899 Other long term (current) drug therapy; Z68.20 Body mass index [BMI] 20.0-20.9, adult
CPT/HCPCS: 36415; 71045; 74250; 80048; 80053; 81001; 81003; 83605; 83690; 83735; 83880; 84100; 84484; 85025; 85610; 85730; 86886; 86900; 86901; 87040; 87081; 93005; 96361; 96374; 96375; 99285; C9113; J2270; J2370; J2405; J2543; J2704; J7060; Q0092; Q9966